=== PATIENT | male | born 1985 | race Two or more races ===

== ENCOUNTER 2021-10-20 21:16 | Emergency (ER) | payer SELFPAY ==
[~2021-10-20] VITALS: Ht 160 cm; Wt 72.6 kg
[2021-10-20 21:39] VITALS: BP 132/81
[2021-10-20] MEDS ORDERED: CEFAZOLIN 1 GM VIAL IM ONE (23:00)
[2021-10-20] MEDS ORDERED: TDAP [DIPH/PERTUSSIS/TET] 0.5 ML VIAL IM ONE ×3 (23:00→23:22)
[2021-10-20] MEDS ORDERED: GELATIN SPONGE,ABSORBABLE 1 SPONGE SPONGE TP ONE ×3 (23:16→23:30)
[2021-10-20] MEDS ORDERED: VANCOMYCIN 1 GM VIAL ONE (23:27)
[2021-10-20] MEDS ORDERED: VANCOMYCIN 1 GM in IV D5W 250 ML IV ONE (23:30)
[2021-10-20] MEDS ORDERED: IBUP-1955 PO (23:43)
[2021-10-20] MEDS ORDERED: CEPH500T PO (23:43)
--- NOTE | 2021-10-20 23:47 | NUR ---
VANCOMYCIN IV STARTED ON LEFT AC USING G20 NEEDLE. STOP TIME 0100H
--- NOTE | 2021-10-21 01:16 | NUR ---
Patient discharged to home in stable condition. Rx and Written and verbal after care instructions given. Patient verbalizes understanding of instruction.
== END 2021-10-21 02:12 | disposition home or self-care (01) ==
LOC: ER 21:24
DX: S61.215A Laceration without foreign body of left ring finger without damage to nail, initial encounter (principal); Z60.2 Problems related to living alone; W26.8XXA Contact with other sharp object(s), not elsewhere classified, initial encounter; Y93.89 Activity, other specified; Y92.098 Other place in other non-institutional residence as the place of occurrence of the external cause; Y99.8 Other external cause status
CPT/HCPCS: 73130; 90471; 90715; 96365; 99284; J0690; J3370